=== PATIENT | female | born 1970 | race Caucasian/White ===

== ENCOUNTER 2017-05-12 10:59 | Emergency (ER) | payer BC, OTHER ==
[2017-05-12 11:03] VITALS: BP 135/81; PULSE 100; TEMP 99.6; BMI 30.2
[2017-05-12] MEDS ORDERED: IBUPROFEN 600 MG TABLET (FP) PO ONE ×2 (11:45→11:46)
--- NOTE | 2017-05-12 11:51 | PDOC ---
History of Present Illness - General Chief Complaint: Cold Symptoms Stated Complaint: HEADACHE Time Seen by Provider: 05/12/17 11:38 History Source: Patient Exam Limitations: No Limitations - History of Present Illness Initial Comments: 05/12/17 11:46 patient came with for evaluation of cough, cold symptoms , frontal headache, and runny nose 3 days. States has been coughing with moist nonproductive cough 3 weeks. No one at home is sick. 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 Has used NyQuil and asso-[id number]-[id number] medications with minimal resolved. 05/12/17 11:56 Timing/Duration: reports: just prior to arrival Severity: reports: mild Past History - Travel Traveled outside of the country in the last 30 days: No Close contact w/someone who was outside of country & ill: No - Past Medical History Allergies/Adverse Reactions: Allergies Allergy/AdvReac Type Severity Reaction Status Date / Time No Known Allergies Allergy Verified 05/12/17 11:02 Home Medications: Ambulatory Orders Azithromycin [Zithromax -] 250 mg PO UTDICT #6 tab 05/12/17 Other medical history: NONE - Surgical History Cholecystectomy: Yes - Psycho/Social/Smoking Cessation Hx Suicidal Ideation: No Smoking History: Never smoked Hx Alcohol Use: Yes (SOCIAL) Drug/Substance Use Hx: No Respiratory Specific PMHX - Complaint Specific PMHX Bronchitis: No Pneumonia: No Review of Systems - Review of Systems Able to Perform ROS?: Yes Is the patient limited Polish proficient: Yes Constitutional: Yes: Symptoms Reported, See HPI, Malaise. No: Fever HEENTM: Yes: See HPI, Nose Congestion. No: Symptoms Reported Respiratory: Yes: Symptoms reported, See HPI, Cough. No: Wheezing Cardiac (ROS): No: Symptoms Reported Integumentary: Yes: Symptoms Reported, See HPI All Other Systems: Reviewed and Negative *Physical Exam - Vital Signs Last Vital Signs Temp Pulse Resp BP Pulse Ox 99.6 F 100 H 18 135/81 99 05/12/17 10:59 05/12/17 10:59 05/12/17 10:59 05/12/17 10:59 05/12/17 10:59 - Physical Exam General Appearance: Yes: Nourished, Appropriately Dressed, Apparent Distress, Mild Distress HEENT: positive: FERNANDA, TMs Normal, Pharyngeal Erythema, Tonsillar Erythema, Nasal Congestion, Rhinorrhea Neck: positive: Supple. negative: Tender, Lymphadenopathy (R), Lymphadenopathy (L) Respiratory/Chest: positive: Lungs Clear, Normal Breath Sounds Gastrointestinal/Abdominal: positive: Soft. negative: Normal Bowel Sounds Musculoskeletal: positive: Normal Inspection. negative: CVA Tenderness Extremity: positive: Normal Capillary Refill, Normal Inspection, Normal Range of Motion, Tender Integumentary: positive: Normal Color, Dry, Warm, Pale Neurologic: positive: rn anesthesiology II-XII NML intact, Fully Oriented, Normal Mood/Affect , Normal Response, Motor Strength 01/04 Progress Note - Progress Note Progress Note: Influenza test negative, we'll treat with Zithromax *DC/Admit/Observation/Transfer Diagnosis at time of Disposition: Upper respiratory infection, acute - Discharge Dispostion Disposition: HOME Condition at time of disposition: Stable Admit: No - Patient Instructions Printed Discharge Instructions: DI for Viral Upper Respiratory Infection -- Adult Additional Instructions: Rest, drink lots of fluids: Teas, water, soups, Pedialyte Saltwater gargles Steamy showers/seem to face break up mucus Avoid contact with others until fevers and cough resolved Lots of handwashing and good hygiene Continue pqeg-[id number] medications for symptomatic relief Tylenol or Motrin for fever and pain Azithromycin as directed Followup with private physician in one to 2 days as needed Return to emergency department for worsened symptoms, fevers, dehydration - Post Discharge Activity Work/School Note: Back to Work
== END 2017-05-12 12:42 | disposition home or self-care (01) ==
LOC: JER 10:59 → JERFT 10:59
DX: J06.9 Acute upper respiratory infection, unspecified (principal); B97.89 Other viral agents as the cause of diseases classified elsewhere
CPT/HCPCS: 87804; 99281-25

== ENCOUNTER 2018-12-07 12:27 | Emergency (ER) | payer SELFPAY ==
[2018-12-07 12:43] VITALS: BP 126/75; PULSE 87; TEMP 97.9; BMI 29.2
--- NOTE | 2018-12-07 14:25 | PDOC ---
History of Present Illness - General Chief Complaint: Pain Stated Complaint: NECK AND EAR PAIN Time Seen by Provider: 12/07/18 12:55 History Source: Patient Exam Limitations: No Limitations - History of Present Illness Initial Comments: 12/07/18 14:19 48 yo F w/ a h/o thyroid disease, asthma comes in c/o 3-4 days of R sided facial pressure, discomfort, burning, R sided ear discomfort, all worse with movement and leanign forward, (+)R sided throat pain. Pt used to have sinusitis in the past. NO fever/chills, no NVD, no runny nose, no nasal congestion. Also c /o a lump to the R side of her neck for the past 1-2 days. SHe has not been sleeping well due to her symptoms. NO known sick contacts, no recent travel, no rash. NO midline neck pain, no chest pain, no cough, no difficulty breathing, no back pain. NO change in apeptite, no decrease in urination. Pt took 1 amoxicillin last night, which [place] becuase she was desperate due to the symptoms. 12/07/18 14:25 Past History - Past Medical History Allergies/Adverse Reactions: Allergies Allergy/AdvReac Type Severity Reaction Status Date / Time No Known Allergies Allergy Verified 12/07/18 12:43 Home Medications: Ambulatory Orders Albuterol Sulfate Inhaler - [Ventolin Hfa Inhaler -] 1 - 2 inh PO Q4H PRN Aspirin 81 mg PO DAILY 05/12/18 Loratadine [Claritin -] 10 mg PO DAILY 05/12/18 Sulfamethoxazole/Trimethoprim [Bactrim Ds Tablet] 1 each PO BID #7 tablet Amoxicillin/Potassium Clav [Augmentin 875-125 Tablet] 1 each PO Q12H 10 Days # 20 tablet 12/07/18 Fluticasone Prop 0.05% Nasal [Flonase -] 1 - 2 spray NS DAILY #1 spray.pump 03/20 Ibuprofen 600 mg PO Q8H 3 Days #18 tablet 12/07/18 Pseudoephedrine HCl [Sudafed] 60 mg PO Q8H 3 Days #18 tablet 12/07/18 Sodium Chloride Nasal [place] [[place] Nas[place] -] 2 spray NS QID 4 Days # 1 spraybtl 12/07/18 Asthma: Yes COPD: No DVT: No Dementia: No Thyroid Disease: Yes - Surgical History Cholecystectomy: Yes - Reproductive History (#): 3 Para: 2 Spontaneous : 1 - Immunization History Immunization Up to Date: Yes - Suicide/Smoking/Psychosocial Hx Smoking History: Never smoked Hx Alcohol Use: No Drug/Substance Use Hx: No Substance Use Type: None *Physical Exam - Vital Signs Last Vital Signs Temp Pulse Resp BP Pulse Ox 97.9 F 87 18 126/75 99 12/07/18 12:40 12/07/18 12:40 12/07/18 12:40 12/07/18 12:40 12/07/18 12:40 - Physical Exam General Appearance: Yes: Nourished. No: Apparent Distress HEENT: positive: [place], Normal ENT Inspection, Normal Voice, Pharyngeal Erythema (mild), Sinus Tenderness (R maxillary sinus tenderness), TM Dull (R TM dull with effusion behind TM). negative: Pale Conjunctivae, Scleral Icterus (R), Scleral Icterus (L), Tonsillar Exudate, Tonsillar Erythema, Rhinorrhea, TM Bulging, TM Erythema Neck: positive: Supple, Tender lateral (R paraspinal muscular tenderness. (+) golf ball size swelling to the R supraclavicular area, does not feel like a lymph node, could be muscular. It is beyond the margin of the thyroid gland. NO skin changes). negative: Decreased range of motion, Tender midline Respiratory/Chest: positive: Lungs Clear, Normal Breath Sounds. negative: Respiratory Distress, Accessory Muscle Use Cardiovascular: positive: Regular Rhythm, Regular Rate Gastrointestinal/Abdominal: positive: Normal Bowel Sounds, Soft. negative: Tender Musculoskeletal: positive: Normal Inspection. negative: CVA Tenderness, Decreased Range of Motion Extremity: positive: Normal Capillary Refill, Normal Inspection, Normal Range of Motion. negative: Tender, Pedal Edema Integumentary: positive: Normal Color, Dry. negative: Jaundice, Rash Neurologic: positive: Fully Oriented, Alert, Normal Mood/Affect ED Treatment Course - RADIOLOGY Radiology Studies Ordered: Category Date Time Status SOFT TISSUE NECK AND HEAD US [US] Stat Ultrasound 12/07/18 13:19 Ordered Medical Decision Making - Medical Decision Making 12/07/18 14:27 48 yo F w/ likely sinusitis and R sided ear infection w/ effusion. Pt also p/w R sided neck swelling in supraclavicular region, could be muscular because patient has not been sleeping well, but will do sono R/O mass 12/07/18 15:39 Dr. Gomez cell phone [phone] 12/07/18 15:[address] Jason Guerrero regarding sono results, because the supraclavicular region was not mentioned. He asked that patient goes back to sono to get additional images. Pt transported back to sono 12/07/18 16:30 Sono shows lymph node in supraclavicular region. WIll dsicharge with augmentin for sinusitis and ear infection, wull give sudafed, flonase, saline and will have opt follow up with ENT for reevaluation of her lymph nodes after her symptoms resolve. Return for worsening/concerning symtpoms Pt verbalizes understanding and agrees with plan Pt in NAD< tolerating PO *DC/Admit/Observation/Transfer Diagnosis at time of Disposition: Lymphadenopathy of head and neck Sinusitis Qualifiers: Sinusitis location: maxillary Chronicity: acute Recurrence: not specified as recurrent Qualified Code(s): J01.00 - Acute maxillary sinusitis, unspecified Otitis media Qualifiers: Otitis media type: suppurative Chronicity: acute Laterality: right Recurrence: not specified as recurrent Spontaneous tympanic membrane rupture: without spontaneous rupture Qualified Code(s): H66.001 - Acute suppurative otitis media without spontaneous rupture of ear drum, right ear - Discharge Dispostion Disposition: HOME Condition at time of disposition: Stable - Prescriptions Prescriptions: Amoxicillin/Potassium Clav [Augmentin 875-125 Tablet] 1 each PO Q12H 10 Days # 20 tablet Fluticasone Prop 0.05% Nasal [Flonase -] 1 - 2 spray NS DAILY #1 spray.pump Ibuprofen 600 mg PO Q8H 3 Days #20 tablet Pseudoephedrine HCl [Sudafed] 60 mg PO Q8H 3 Days #18 tablet Sodium Chloride Nasal [place] [[place] -] 1 spray NS QID 4 Days # 1 spraybtl - Referrals Referrals: Moses Arellano MD [Primary Care Provider] - Phu Gorman MD [Staff Physician] - - Patient Instructions Printed Discharge Instructions: DI for Sinusitis Additional Instructions: Please make an appointment with the ENT doctor because your lymph nodes need to be reassessed after your symptoms resolve. Es muy importante hacer guillermo ron con el otorhinolaryngologo para reevaluar la despues que pasan ronnie simtomas. Lla ma manana para hacer guillermo ron. Tambien hace guillermo ron con [facility]. Regresa en case que se empeoran ronnie simptomas. Kiran. - Post Discharge Activity
== END 2018-12-07 16:41 | disposition home or self-care (01) ==
LOC: JERFT 12:27
DX: H66.001 Acute suppurative otitis media without spontaneous rupture of ear drum, right ear (principal); J01.00 Acute maxillary sinusitis, unspecified; R59.0 Localized enlarged lymph nodes
CPT/HCPCS: 76536-TC; 99281-25

== ENCOUNTER 2019-05-12 12:47 | Emergency (ER) | payer SELFPAY ==
[2019-05-12 12:59] VITALS: BMI 29.2
--- NOTE | 2019-05-12 13:42 | PDOC ---
History of Present Illness - General History Source: Patient - History of Present Illness Timing/Duration: reports: constant, getting worse <Magnolia Rodgers - Last Filed: 05/12/19 18:13> <Haja Martinez - Last Filed: 05/12/19 19:50> - General Chief Complaint: Vaginal Bleeding Stated Complaint: BLOODY STOOL Time Seen by Provider: 05/12/19 13:29 Past History - Past Medical History Asthma: Yes COPD: No DVT: No Dementia: No Thyroid Disease: Yes - Surgical History Cholecystectomy: Yes - Reproductive History (#): 3 Para: 2 Spontaneous : 1 - Immunization History Immunization Up to Date: Yes - Suicide/Smoking/Psychosocial Hx Smoking History: Never smoked Have you smoked in the past 12 months: No Information on smoking cessation initiated: No Hx Alcohol Use: No Drug/Substance Use Hx: No Substance Use Type: None <Magnolia Rodgers - Last Filed: 05/12/19 18:13> <Haja Martinez - Last Filed: 05/12/19 19:50> - Past Medical History Allergies/Adverse Reactions: Allergies Allergy/AdvReac Type Severity Reaction Status Date / Time No Known Allergies Allergy Verified 05/12/19 13:00 Home Medications: Ambulatory Orders Albuterol Sulfate Inhaler - [Ventolin Hfa Inhaler -] 1 - 2 inh PO Q4H PRN Aspirin 81 mg PO DAILY 05/12/18 Loratadine [Claritin -] 10 mg PO DAILY 05/12/18 Fluticasone Prop 0.05% Nasal [Flonase -] 1 - 2 spray NS DAILY #1 spray.pump 03/20 Ibuprofen 600 mg PO Q8H 3 Days #18 tablet 12/07/18 Pseudoephedrine HCl [Sudafed] 60 mg PO Q8H 3 Days #18 tablet 12/07/18 Sodium Chloride Nasal [place] [[place] Nasal [place] -] 2 spray NS QID 4 Days # 1 spraybtl 12/07/18 Review of Systems - Review of Systems Constitutional: Yes: Weakness ABD/GI: No: Nausea, Vomiting, Abdominal cramping <Magnolia Rodgers - Last Filed: 05/12/19 18:13> *Physical Exam - Vital Signs Last Vital Signs Temp Pulse Resp BP Pulse Ox 98.9 F 92 H 16 134/64 100 05/12/19 12:57 05/12/19 12:57 05/12/19 12:57 05/12/19 12:57 05/12/19 12:57 - Physical Exam General Appearance: Yes: Appropriately Dressed. No: Severe Distress HEENT: positive: Pale Conjunctivae Neck: positive: Supple Respiratory/Chest: negative: Respiratory Distress Gastrointestinal/Abdominal: positive: Normal Bowel Sounds, Soft. negative: Tender, Distended, Guarding, Rebound Musculoskeletal: negative: CVA Tenderness Integumentary: positive: Dry, Warm Neurologic: positive: Fully Oriented, Alert, Normal Mood/Affect <Magnolia Rodgers - Last Filed: 05/12/19 18:13> - Vital Signs Last Vital Signs Temp Pulse Resp BP Pulse Ox 97.8 F 76 16 122/73 100 05/12/19 17:29 05/12/19 17:29 05/12/19 17:29 05/12/19 17:29 05/12/19 17:29 <Haja Martinez - Last Filed: 05/12/19 19:50> ED Treatment Course - LABORATORY CBC & Chemistry Diagram: 05/12/19 13:57 05/12/19 13:57 <Magnolia Rodgers - Last Filed: 05/12/19 18:13> - LABORATORY CBC & Chemistry Diagram: 05/12/19 13:57 05/12/19 13:57 - ADDITIONAL ORDERS Additional order review: Laboratory Results 05/12/19 05/12/19 05/12/19 15:37 13:57 13:57 PT with INR 11.70 INR 0.99 Sodium Potassium Chloride Carbon Dioxide Anion Gap BUN Creatinine Est GFR (CKD-EPI)AfAm Est GFR (CKD-EPI)NonAf Random Glucose Calcium Total Bilirubin AST ALT Alkaline Phosphatase Total Protein Albumin Urine Color Red Urine Appearance Cloudy Urine pH 5.0 Ur Specific [place] 1.011 Urine Protein 2+ H Urine Glucose (UA) 2+ H Urine Ketones Negative Urine Blood 3+ H Urine Nitrite Negative Urine Bilirubin Negative Urine Urobilinogen 0.2 Ur Leukocyte Esterase 2+ H Urine WBC (Auto) 12 Urine RBC (Auto) 1086 Urine Casts (Auto) 6 U Epithel Cells (Auto) 5.0 U Sm Round Cell (Auto) None seen Urine Bacteria (Auto) 3.4 Urine HCG, Qual Blood Type AB POSITIVE Antibody Screen Negative 05/12/19 05/12/19 13:57 13:57 PT with INR INR Sodium 137 Potassium 4.0 Chloride 99 Carbon Dioxide 25 Anion Gap 12 BUN 9.8 Creatinine 0.9 Est GFR (CKD-EPI)AfAm 87.63 Est GFR (CKD-EPI)NonAf 75.61 Random Glucose 239 H Calcium 8.8 Total Bilirubin 0.3 AST 89 H ALT 44 Alkaline Phosphatase 132 H Total Protein 6.9 Albumin 3.1 L Urine Color Urine Appearance Urine pH Ur Specific [place] Urine Protein Urine Glucose (UA) Urine Ketones Urine Blood Urine Nitrite Urine Bilirubin Urine Urobilinogen Ur Leukocyte Esterase Urine WBC (Auto) Urine RBC (Auto) Urine Casts (Auto) U Epithel Cells (Auto) U Sm Round Cell (Auto) Urine Bacteria (Auto) Urine HCG, Qual Negative Blood Type Antibody Screen 05/12/19 13:57 RBC 4.07 MCV 66.4 L MCHC 29.9 L RDW 18.1 H MPV 9.1 Neutrophils % 65.7 D Lymphocytes % 25.8 D Monocytes % 6.5 Eosinophils % 1.5 Basophils % 0.5 - Medications Given in the ED: ED Medications Discontinued Medications Generic Name Dose Route Start Last Admin Trade Name Freq PRN Reason Stop Dose Admin Acetaminophen 650 mg 05/12/19 13:43 05/12/19 13:50 Tylenol - PO 05/12/19 13:44 650 mg ONCE ONE Administration <Haja Martinez - Last Filed: 05/12/19 19:50> Medical Decision Making - Medical Decision Making 05/12/19 13:41 49 yo F, DM, asthma, anemia, n/o h/o blood transfusion, here with persistent vaginal bleed 1 month, worsened this am. No abd pain, weakness, dizziness, shortness of breath or syncope. Patient states she recently moved to the [facility] from [place] and currently does not have a ON SITE WASTEWATER SYSTEMS TECHNICIAN in the [facility]. No known h/o fibroids See exam DUB R/o preg Possibly perimenopausal No h/o fibroids Stable here -labs -dispo pending 05/12/19 16:32 Hgb 8.1, was 8.4 in 05/2018. US w/ ? increased in uterus but no obvious pathology otherwise. Pt states vag bleed since improved. Remains well federico and stable here. Pt has no insurance to f/u in clinic. Will c/w [employer] SITE WASTEWATER SYSTEMS TECHNICIAN at this time to discuss dispo 05/12/19 18:[address] Spencer several times with no callback. Disposition was discussed with Dr. Martinez who agrees with prescription for iron pills and have [facility] follow[facility]. I discussed this with patient who is satisfied with plan. Currently has no insurance and states she will purchase iron pills in the pharmacy. Told to take 325 mg daily and follow-up in clinic. Strict return precautions given to patient <Magnolia Rodgers - Last Filed: 05/12/19 18:13> - Medical Decision Making 05/12/19 19:49 I reviewed the case of the mid-level practitioner and was available for consultation while in the emergency department <Haja Martinez - Last Filed: 05/12/19 19:50> *DC/Admit/Observation/Transfer <Magnolia Rodgers - Last Filed: 05/12/19 18:13> <Haja Martinez - Last Filed: 05/12/19 19:50> Diagnosis at time of Disposition: DUB (dysfunctional uterine bleeding) Anemia Qualifiers: Anemia type: other cause Other causes of anemia: other cause, not classified Qualified Code(s): D64.89 - Other specified anemias - Discharge Dispostion Disposition: HOME Condition at time of disposition: Stable - Patient Instructions Printed Discharge Instructions: DI for Vaginal Bleeding Additional Instructions: Qiu hemoglobina hoy es 8, que era el ao pasado cuando estuvo aqu. Empezaste con pastillas de sp. Por favor, tome segn las indicaciones. Dado que no tiene seguro y necesita capri a un gineclogo, le hemos dado el nmero y la direccin de [facility] en [place]. Por favor llame maana para hacer guillermo ron para ser visto esta semana. Si ronnie sntomas empeoran antes de la ron, regrese a la [place] Puedes comprar pastillas de sp en cualquier farmacia. glenis 325 mg al da [facility] Direccin: [address], [place] [address] Horas: Joselyn pronto: 7PM ? Abre 9AM Nd Telfono: Print Language: CUBAN
[2019-05-12] MEDS ORDERED: ACETAMINOPHEN 325 MG TABLET (FP) PO ONE (13:43)
[2019-05-12] MEDS ORDERED: ACETAMINOPHEN 325 MG TABLET (FP) ONE (13:46)
[2019-05-12 14:31] LABS: BASO % 0.5 % (0-2.0); EOS % 1.5 % (0-4.5); HEMOGLOBIN 8.1 GM/dL (10.7-15.3); LYMPH % 25.8 % (8-40); MCHC 29.9 g/dl (32.0-36.0); MEAN CELL VOLUME 66.4 fl (80-96); MEAN PLT VOLUME 9.1 fl (7.5-11.1); MONO % 6.5 % (3.8-10.2); NEUT % 65.7 % (42.8-82.8); PLATELET COUNT 249 K/MM3 (134-434); RBC 4.07 M/mm3 (3.60-5.2); RDW 18.1 % (11.6-15.6); WHITE BLOOD COUNT 12.8 K/mm3 (4.0-10.0)
[2019-05-12 14:37] LABS: MCH 19.9 pg (25.7-33.7)
[2019-05-12 14:43] LABS: INR 0.99 (0.83-1.09); PROTHROMBIN TIME (PATIENT) 11.7 SEC (9.7-13.0)
[2019-05-12 15:01] LABS: ALBUMIN 3.1 g/dl (3.4-5.0); BILIRUBIN,TOTAL 0.3 mg/dL (0.2-1); BLOOD UREA NITROGEN 9.8 mg/dL (7-18); CALCIUM 8.8 mg/dL (8.5-10.1); CREATININE 0.9 mg/dL (0.55-1.3); TOT PROT 6.9 g/dl (6.4-8.2)
[2019-05-12 15:13] LABS: HYALINE CASTS 6 /lpf (0-8); URINE APPEARANCE CLOUDY; URINE BACTERIA 3.4 /hpf (NEGATIVE); URINE BILIRUBIN NEGATIVE (NEGATIVE); URINE COLOR RED; URINE GLUCOSE (UA) 2+ (NEGATIVE); URINE KETONE NEGATIVE (NEGATIVE); URINE LEUK ESTERASE 2+ (NEGATIVE); URINE NITRITE NEGATIVE (NEGATIVE); URINE PROTEIN 2+ (NEGATIVE); URINE RBC 1086 /hpf (0-4); URINE UROBILINOGEN 0.2 mg/dL (0.2-1.0); URINE WBC 12 /hpf (0-5)
[2019-05-12 16:16] LABS: ANISOCYTOSIS 1+; MACROCYTOSIS 0; PLATELET ESTIMATE NORMAL
[2019-05-12 17:30] VITALS: BP 122/73; PULSE 76; TEMP 97.8
== END 2019-05-12 18:20 | disposition home or self-care (01) ==
LOC: JER 12:47
DX: N93.8 Other specified abnormal uterine and vaginal bleeding (principal); D64.89 Other specified anemias
CPT/HCPCS: 36415; 76830-TC; 76856-TC; 80053; 81003; 84703; 85025; 85610; 86850; 86900; 86901; 99283-25

== ENCOUNTER 2020-07-31 14:33 | Emergency (ER) | payer OTHER ==
[2020-07-31 14:43] VITALS: BP 122/89; TEMP 97.8; BMI 24.7
[2020-07-31 16:35] LABS: HEMATOCRIT 37.1 % (32.4-45.2); HEMOGLOBIN 11.6 GM/dL (10.7-15.3); MCH 23.8 pg (25.7-33.7); MCHC 31.3 g/dl (32.0-36.0); MEAN CELL VOLUME 75.8 fl (80-96); MEAN PLT VOLUME 8.7 fl (7.5-11.1); PLATELET COUNT 358 K/MM3 (134-434); RBC 4.89 M/mm3 (3.60-5.2); RDW 18.8 % (11.6-15.6); WHITE BLOOD COUNT 11.4 K/mm3 (4.0-10.0)
[2020-07-31 16:43] LABS: INR 1.02 (0.83-1.09); PROTHROMBIN TIME (PATIENT) 12.5 SEC (9.7-13.0)
[2020-07-31 16:45] LABS: ACTIVATED PTT 38.4 SECONDS (25.2-36.5)
[2020-07-31 16:59] LABS: POTASSIUM 4.9 mmol/L (3.5-5.1)
[2020-07-31 17:01] LABS: CALCIUM 9.7 mg/dL (8.5-10.1)
[2020-07-31 17:02] LABS: ALBUMIN 3.8 g/dl (3.4-5.0); BLOOD UREA NITROGEN 12.2 mg/dL (7-18)
[2020-07-31 17:05] LABS: CREATININE 0.9 mg/dL (0.55-1.3)
[2020-07-31 17:07] LABS: BILIRUBIN,TOTAL 0.4 mg/dL (0.2-1); TOT PROT 8.1 g/dl (6.4-8.2)
[2020-07-31 17:41] VITALS: PULSE 97
== END 2020-07-31 20:02 | disposition home or self-care (01) ==
LOC: JER 14:33
DX: R07.9 Chest pain, unspecified (principal)
CPT/HCPCS: 36415; 71045-TC-FY; 71275-TC; 80053; 84703; 85027; 85610; 85730; 93005; 93010; 99284-25